=== PATIENT | male | born 1950 | race Caucasian/White ===

== ENCOUNTER 2019-02-12 08:18 | Day surgery (SDC) | payer MEDICARE, MEDICAID ==
[2019-02-12] MEDS ORDERED: Lactated Ringer's 500 ML IV ONE (08:52)
[2019-02-12 09:00] VITALS: BMI 27.4
[2019-02-12] MEDS ORDERED: Propofol 10 mg/ml Inj (20 ML) ONE (12:05)
[2019-02-12 12:52] VITALS: BP 124/69; PULSE 55; RESP 17; TEMP 94; O2SAT 100
== END 2019-02-12 13:16 | disposition home or self-care (01) ==
LOC: H.ENDO 08:18
PROVIDERS: ATTEND Internal Medicine Gastroenterology
DX: Z12.11 Encounter for screening for malignant neoplasm of colon (principal); J45.909 Unspecified asthma, uncomplicated; E78.5 Hyperlipidemia, unspecified; I10 Essential (primary) hypertension; K64.1 Second degree hemorrhoids; D12.5 Benign neoplasm of sigmoid colon; D12.2 Benign neoplasm of ascending colon; Z98.0 Intestinal bypass and anastomosis status; K57.30 Diverticulosis of large intestine without perforation or abscess without bleeding
CPT/HCPCS: 45380; 88305; J2001; J2704; J7120